=== PATIENT | male | born 1995 | race Caucasian/White ===

== ENCOUNTER 2017-03-19 19:17 | Emergency (ER) | payer SELFPAY | END 2017-03-19 21:40 | disposition home or self-care (01) | LOC: ER 19:17 | DX: T75.4XXA Electrocution, initial encounter (principal); R07.89 Other chest pain; R51 Headache; R42 Dizziness and giddiness; F95.2 Tourette's disorder; W86.8XXA Exposure to other electric current, initial encounter ==